=== PATIENT | female | born 1970 | race Caucasian/White ===

== ENCOUNTER 2025-03-29 07:23 | Outpatient (REF) | payer BC, SELFPAY ==
--- NOTE | ~2025-03-29 | XR_ITS ---
EXAMINATION: XR KNEE 3 VIEWS LEFT HISTORY: M25.562 - Pain in left knee COMPARISON: There are no prior studies available for comparison. FINDINGS: Standing AP views of both knees and additional lateral and sunrise patellar views of the left knee are submitted. Osseous mineralization is normal. There is no fracture or dislocation. The joint spaces are preserved. The soft tissues are unremarkable. There is no joint effusion. XR/XR knee LT 3V IMPRESSION: Unremarkable examination of the left knee. Electronically signed by: Cliff Durham MD 03/29/2025 09:41 AM EDT
== END 2025-03-29 07:24 | disposition home or self-care (01) ==
LOC: HO.HOSX 07:23
PROVIDERS: Visit Provider Orthopaedic Surgery
DX: M25.562 Pain in left knee (principal)
CPT/HCPCS: 73562

== ENCOUNTER 2025-03-29 08:49 | Outpatient (AMB) | payer BC, SELFPAY ==
--- NOTE | 2025-03-29 09:00 | A.OFFVIS_ITS ---
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 Patient reports that she fell on her left knee while skiing. Patient states that the pain is located around the whole knee cap and behind the knee cap. Patient reports that she is having stabbing/Dullache with any movement. Patient reports that no numbness or tingling. Patient states she has been to physical therapy for eight weeks, no meds to help with the pain. Allergies cat dander Allergy (Verified 03/29/25 09:05) Itching dog dander Allergy (Verified 03/29/25 09:05) Itching phenylpropanolamine Allergy (Verified 03/29/25 09:05) Tongue Swelling HPI HPI BUSINESS PROJECT MANAGER-Lt Knee pain: Details: Tabitha is a 55 year old female who presents today as a New Patient with complaints of Left Knee Pain. Patient reports that she fell on her left knee while skiing. Patient states that the pain is located around the whole knee cap and behind the knee cap. Patient reports that she is having stabbing/Dullache with any movement. Patient reports that no numbness or tingling. Patient states she has been to physical therapy for eight weeks, no meds to help with the pain. 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 She has a doing physical therapy. She is worried that she will not be able to return to her prior level of activity. She also describes some tenderness over the superficial aspect of the knee. She states she feels the knee is tight skin when she bends. She denies numbness and tingling. [facility] Surgical History (Updated 03/23/25 @ 11:13 by Carolyn Deluna CMA) H/O excision of ganglion cyst History of tonsillectomy Social History (Updated 03/29/25 @ 09:07 by Adelaida Barber, CCT-A) Patient Tobacco Use Status: Never used Tobacco Current occupational status: employed Current occupation: Teacher Physical Exam Vital Signs: BMI result Body Mass Index 26.5 Extrem Other: Pleasant young woman in no acute distress. Left knee with 5-115 degrees of motion. Decreased patellar mobility with mild effusion. Tight iliotibial band. Stable to Delaney's testing although quite apprehensive. Negative Sung's. No joint line tenderness. Results Reviewed Results Reviewed: I personally reviewed relevant radiographs. Small femoral osteophyte laterally otherwise unremarkable I personally reviewed the MR images. Proximal high-grade tear left ACL with lateral tibial plateau osseous contusion with a medial meniscus posterior 3rd meniscal capsular injury and mild chondromalacia of the patella Assessment & Plan Assessment & Plan (1) Anterior cruciate ligament tear: Code(s): S83.519A - Sprain of anterior cruciate ligament of unspecified knee, initial encounter Category: Medical Plan: This is a 55-year-old woman with a partial ACL tear. She has stiffness and is working through that with therapy. There is no acute intervention warranted. I recommend therapy followed by increased icing and rest when not active. I would like to see her back in 4-6 weeks. At this time there is no evidence of knee instability Orders: Orders XR knee LT 3V Today M25.562 - Pain in left knee Coding Level of Care Code New Pt Level 3 (80941) Diagnoses Anterior cruciate ligament tear S83.519A
[2025-03-29 09:02] VITALS: BMI 26.5
== END 2025-03-29 09:42 | disposition home or self-care (01) ==
LOC: HO.HOS 08:49
PROVIDERS: PCP Internal Medicine; Visit Provider Orthopaedic Surgery
DX: S83.512A Sprain of anterior cruciate ligament of left knee, initial encounter (principal)
CPT/HCPCS: 99203

== ENCOUNTER → 2025-03-29 08:50 | Outpatient (BNV) | payer BC, SELFPAY | PROVIDERS: Visit Provider Radiology Diagnostic Radiology | DX: M25.562 Pain in left knee (principal) | CPT/HCPCS: 73562 ==

== ENCOUNTER 2025-05-10 08:32 | Outpatient (AMB) | payer BC, SELFPAY ==
[2025-05-10 08:40] VITALS: BMI 26.5
--- NOTE | 2025-05-10 08:40 | MHC.OFFVIS ---
Vital Signs 05/10/25 08:40 Height 5 ft 2 in Weight 145 lb BMI 26.5 Intake Visit Reasons: OV-Lt Knee pain f/u Intake Note: Tabitha is a 55 year old female who presents today for a follow up of her Left Partial ACL Tear. She injured the knee while skiing. At her last visit she was instructed to work with PT for her stiffness. Patient reports she is doing well, however she has a dull constant pain around her knee cap. She is having muscle spasms in her knee as well. Allergies cat dander Allergy (Verified 05/10/25 08:49) Itching dog dander Allergy (Verified 05/10/25 08:49) Itching phenylpropanolamine Allergy (Verified 05/10/25 08:49) Tongue Swelling HPI HPI OV-Lt Knee pain f/u: Details: Tabitha is a 55 year old female who presents today for a follow up of her Left Partial ACL Tear. She injured the knee while skiing. At her last visit she was instructed to work with PT for her stiffness. Patient reports she is doing well, however she has a dull constant pain around her knee cap. She is having muscle spasms in her knee as well. [facility] Surgical History (Updated 03/23/25 @ 11:13 by Carolyn Deluna [facility]) H/O excision of ganglion cyst History of tonsillectomy Social History (Updated 03/29/25 @ 09:07 by Adelaida Barber) Patient Tobacco Use Status: Never used Tobacco Current occupational status: employed Current occupation: Teacher Physical Exam Vital Signs: BMI result Body Mass Index 26.5 Extrem Other: Full range of motion with no effusion. Stable to varus and valgus stress. 1+ Delaney with stable endpoint. No pivot shift. Assessment & Plan Assessment & Plan (1) Anterior cruciate ligament tear: Code(s): S83.519A - Sprain of anterior cruciate ligament of unspecified knee, initial encounter Category: Medical Plan: This is a active and healthy 55-year-old woman. She enjoys Pilates, walking and recreational skiing. She had a high-grade partial tear of her ACL and was stiff at last visit. She has been doing physical therapy and has improved although she still has discomfort with activities and finds deep squatting difficult. She has no clinical complaints or clinical evidence of meaningful instability and her motion has improved. I had a long discussion regarding surgery and nonoperative management. I continue to recommend nonoperative management. I think she should continue PT and avoid dynamic rotation exercises but focus on biking and plyometrics. She will see me back in 2-3 months. Orders: Orders PT Evaluation and Treatment Today S83.519A - Sprain of anterior cruciate ligament of unspecified knee, initial encounter Coding Level of Care Code Est Pt Level 4 (33164) Diagnoses Anterior cruciate ligament tear S83.519A
== END 2025-05-10 09:58 | disposition home or self-care (01) ==
LOC: HO.HOS 08:32
PROVIDERS: PCP Internal Medicine; Visit Provider Orthopaedic Surgery
DX: S83.519A Sprain of anterior cruciate ligament of unspecified knee, initial encounter (principal)
CPT/HCPCS: 99214

== ENCOUNTER 2025-06-24 14:34 | Outpatient (AMB) | payer BC, SELFPAY ==
--- NOTE | 2025-06-24 14:40 | MHC.OFFVIS ---
Vital Signs 06/24/25 14:50 Height 5 ft 2 in Weight 145 lb BMI 26.5 Intake Visit Reasons: OV - Left Knee Partial ACL Tear Intake Note: Tabitha is a 55 year old female who presents today for a follow up of her Left knee - Partial ACL Tear. Injury while skiing. At her last visit we discussed operative and non operative management, we decided to continue conservative management - Continue Physical Therapy and about dynamic rotation exercises. Patient rpeorts that she is doing well, she is still hesitant to move forward with surgery, Allergies cat dander Allergy (Verified 05/10/25 08:49) Itching dog dander Allergy (Verified 05/10/25 08:49) Itching phenylpropanolamine Allergy (Verified 05/10/25 08:49) Tongue Swelling HPI HPI OV - Left Knee Partial ACL Tear: Details: 55-year-old with a high-grade partial tear of her left ACL. She comes in today doing pretty well. She has near full motion and does not feel any instability. Her quad has continued atrophy however she has some discomfort with daily activity but denies giving way. She is active and likes to ski but is not high intensity ski year. [facility] Surgical History (Updated 03/23/25 @ 11:13 by Caorlyn Deluna [facility]) H/O excision of ganglion cyst History of tonsillectomy Social History (Updated 03/29/25 @ 09:07 by Adelaida Barber) Patient Tobacco Use Status: Never used Tobacco Current occupational status: employed Current occupation: Teacher Physical Exam Vital Signs: BMI result Body Mass Index 26.5 Extrem Other: On physical exam she has no effusion with to 130 degrees of motion. Stable to varus and valgus stress. Negative Delaney's/anterior drawer/pivot shift. Assessment & Plan Assessment & Plan (1) Partial tear of anterior cruciate ligament of knee: Code(s): S83.519A - Sprain of anterior cruciate ligament of unspecified knee, initial encounter Category: Medical Plan: This is a 55-year-old woman with no clinical evidence of instability and a incomplete ACL tear on MRI. Her motion has improved and she is doing Pilates but still has some stiffness and discomfort. I had a long discussion regarding treatment options. It is a little aggressive to discuss surgery when she does not have any evidence of instability and there is a suggestion of only a partial tear on MRI. I did discuss that she may worsen in the future have giving way symptoms that would lead us down a surgical past but at this point I do not recommend surgery. I would like to see her back in 3 months' time and we will go from there. In the meantime I discussed workout activities that would benefit her these include closed-chain activities with strengthening of the lower extremity and avoidance of cutting activities. She understands the plan and is amenable to it. Coding Level of Care Code Est Pt Level 4 (57413) Diagnoses Partial tear of anterior cruciate ligament of knee S83.519A
[2025-06-24 14:50] VITALS: BMI 26.5
--- OUTSIDE RECORDS SUMMARY | 2025-06-24 15:50 | XMS_ITS | Encounter Summary ---
Author Organization [facility] Address [address] [facility] [address] [place] [phone] Phone Care Team Providers Care Wire Drawing Machine Tender Name Role Phone Neo Shepard MD Primary Care Provider Neo Shepard MD Primary Care Provider [phone] Encounter Details Date Type Department Care Team (Late Contact Info) Description 11/12/2023 Ancillary Orders [facility],Outside Imaging [address] [place] [address] System, Provider Not In, PhD [address] [address] Social History Tobacco Use Types Packs/Day Years Used Date Smoking Tobacco: Former Cigarettes Q uit: 1998 Smokeless Tobacco: Never Alcohol Use Standard Drinks/Week Comments Yes 7 (1 standard drink = 0.6 oz pur e alcohol) Education Answer Date Recorded Are you interested in more education? Not on rolando e 04/12/2023 Are you concerned about learning? Not on file 04/12/2023 No 04/12/2023 No 04/12/2023 Digital Access Answer Date Recorded No 04/12/2023 No 04/12/2023 Reliable internet access at home? Not on file 04/12/2023 Device with a working camera? Not on file Comments Unknown Sex and Gender Information Value Date Recorded Sex Assigned at Not on file Legal Sex Female 11:26 AM EDT Gender Identity Not on file Sexual Orientation Not on file documented as of this encounter Plan of Treatment Upcoming Encounters Date Type Department Care Team (Late Contact Info) Description 07/02/2025 8:30 AM EDT Telemedicine [facility] Neuromuscular Service [address] [place] [address] Regan Carty MD, PhD [address] [place] [phone] [email or web address] 11/11/2025 3:40 PM EST Office Visit [facility] [address] [place] [address] Michelle Chairez MD [address] [place] [address] [address] [place] [address] [email or web address] documented as of this encounter Results * DXA Outside (No Interpretation) (06/12/2019 12:00 AM EDT) Narrative Cheri Chávez - 11/12/2023 6:48 AM EST This study is for PACS storage only and not for interpretation. Procedure Note Cheri Chávez - 11/12/2023 This study is for PACS storage only and not for interpretation. us Provider Not In System PhD IMG OUTSIDE IMAGING W /OUT INTERPRETATION Final Result documented in this encounter Visit Diagnoses Not on filedocumented in this encounter Care Teams Wire Drawing Machine Tender Relationship Specialty Start Date End Date Neo Shepard MD [address] [place] [phone] [email or web address] PCP - General 04/12/23 11/04/24 Neo Shepard MD [address] [place] [phone] [email or web address] PCP - General Internal Medicine 11/05/24 documented as of this encounter Additional Source Comments The information contained in this document represents components of the legal health record. It is not the complete legal health record.[facility]
--- OUTSIDE RECORDS SUMMARY | 2025-06-24 15:50 | XMS_ITS | Clinical Summary ---
Author Organization [facility] Address [address] [address] Phone Care Team Providers Care Director Of Capital Giving Name Role Phone Neo Shepard MD Primary Care Provider [phone] Allergies Active Allergy Reactions Criticality Noted Date Comments Ascorbic Acid Swelling 10/31/2023 Phenylpropanolamine Hydrochloride Medications atorvastatin (LIPITOR) 40 MG tablet Take 40 mg by mouth once. 10/26/19 24 Active fluticasone propionate 100 mcg/actuation DsDv Inhale 1 puff into the lungs daily. 10/17/20 23 Active spironolactone (ALDACTONE) 100 MG tablet Take 50 mg by mouth daily. 08/29/20 23 Active famotidine (PEPCID ORAL) Take 20 mg by mouth 2 (two) times a day. Active docosahexaenoic acid/epa (FISH OIL ORAL) Take by mouth. Activ e calcium carbonate (CALCIUM 600 ORAL) Take by mouth daily. Active biotin, bulk, 100 % Powd by Miscellaneous route. Active FA/mv,Ca,iron,min /lycopene/lut (MULTIVITAL ORAL) Take by mouth. Active Medication-Free TextIndications:a llertec Indications: allertec Active minoxidiL (LONITEN) 2.5 MG tablet Take 1.25 mg by mouth daily. Active bromfenac (BROMDAY) 0.09 % ophthalmic solution Place 1 drop into each eye daily. 10/01/20 24 Active alendronate (FOSAMAX) 70 MG tabletIndications :Osteopenia of multiple sites Take 1 tablet (70 mg total) by mouth once a week. 12 tablet 3 11/05/19 25 Active albuterol-budeson kylie (AIRSUPRA) 90-80 mcg/actuation inhaler INHALE TWO PUFFS BY MOUTH EVERY 4 TO 6 HOURS NEEDED FOR SHORTNESS OF BREATH OR WHEEZING Active LEVOXYL 100 mcg tabletIndications :Postablative hypothyroidism TAKE ONE TABLET BY MOUTH EVERY DAY 90 tablet 2 02/23/20 25 Active azaTHIOprine (IMURAN) 50 mg tabletIndications :Myasthenia gravis without exacerbation Take 2.5 tablets (125 mg total) by mouth daily. 225 tablet 3 05/14/20 25 026 Active predniSONE (DELTASONE) 5 MG tablet Take 1 tablet (5 mg total) by mouth daily. along with 3 mg for total of 8 mg daily 90 tablet 3 06/15/20 25 026 Active predniSONE (DELTASONE) 1 MG tablet Take 3 tablets (3 mg total) by mouth daily with breakfast. Along with 5 mg tablet for total of 8 mg daily 270 tablet 3 06/15/20 25 026 Active predniSONE (DELTASONE) 5 MG tablet 10 mg daily. daily 10/11/20 23 025 Discontin ued(Reord er) Active Problems Problem Noted Date Diagnosed Date Asthma H/O gastroesophageal reflux (GERD) Postablative hypothyroidism Assessment & Plan (11/05/2024 4:46 PM EST): Clinically & biochemically euthyroid. Reports good consistency taking rx appropriately. Will repeat labs yearly, sooner prn symptoms of thyroid dysfunction or > 10-15# weight change, or as otherwise clinically indicated. Assessment & Plan (10/31/2023 4:08 PM EST): Clinically & biochemically euthyroid. Reports good consistency taking rx appropriately. Will repeat labs yearly, sooner prn symptoms of thyroid dysfunction or > 10-15# weight change, or as otherwise clinically indicated. Myasthenia gravis Osteopenia of multiple sites Assessment & Plan (11/05/2024 4:54 PM EST): Clinically stable, no falls or fractures. Tolerating alendronate w/o issue. Has been on since 2020 d/t chronic high-dose glucocorticoid rx. Bone density last year (02/2024, [facility]). They are going to try to taper the steroid gradually. Seeing dentist regularly. Getting a good amount of calcium via diet/supplement & keeping active. Assessment & Plan (10/31/2023 4:09 PM EST): Clinically stable, no falls or fractures. Tolerating alendronate w/o issue. Seeing dentist regularly. Getting a good amount of calcium via diet/supplement. Vitamin D higher than needed, advised to cut back amount in calcium supplement or MVI. Will obtain previous bone density & records & order bone density to be done when due. Blood creatinine increased compared with prior m easurement Assessment & Plan (11/05/2024 4:55 PM EST): She reports was dehydrated @ time of cataract surgery. Advised to hydrate well & can probably be rechecked @ next visit w/ PCP. Encounters Date Type Department Care Team Description 05/14/2025 Refill [facility] [address] [facility] [place] [address] Regan Carty MD, PhD from Last 3 Months Family History Medical History Relation Comments COPD Father Cancer Father Heart attack Father Asthma Mother COPD Mother Hyperlipidemia Mother Rheumatoid arthritis Mother Chronic interstitial cystitis Sister 1 Substance use disorder Sister 1 Asthma Sister 2 Breast cancer Sister 2 Retinitis pigmentosa Sister 2 Relation Status Comments Father Mother Alive Sister 1 Sister 2 Alive Social History Tobacco Use Types Packs/Day Years Used Date Smoking Tobacco: Former Cigarettes Q uit: 1998 Smokeless Tobacco: Never Tobacco Cessation:Counseling Given: Not Answered Alcohol Use Standard Drinks/Week Comments Yes 7 [...] on file Sexual Orientation Not on file Last Filed Vital Signs Vital Sign Reading Time Taken Comments Blood Pressure 113/74 12/21/2024 1:24 PM EST Pulse 78 12/21/2024 1:21 PM EST Temperature - - Respiratory Rate - - Oxygen Saturation 96% 12/21/2024 1:21 PM EST Inhaled Oxygen Concentration - - Weight 66.7 kg (147 lb) 12/21/2024 1:21 PM EST Height 159.3 cm (5' 2.72 ) 11/05/2024 3:35 PM ES T Body Mass Index 26.28 11/05/2024 3:35 PM EST Plan of Treatment Upcoming Encounters Date Type Department Care Team (Late st Contact Info) Description 07/02/2025 8:30 AM EDT Telemedicine [facility] [address] [facility]th [place] [address] Regan Carty MD, PhD [address] [address] [email or web address] 11/11/2025 3:40 PM EST Office Visit [facility] [address] [place] [phone] Michelle Chairez MD [address] [place] [phone] [email or web address] Health Maintenance Due Date Last Done Comments Adult Td,Tdap Booster 1968 LIPID PANEL 1968 POTASSIUM LEVEL 1968 COVID-19 VACCINE (#1) 01/18/1973 DEPRESSION SCREENING 1980 HEPATITIS C SCREENING 01/18/1986 HIV ONE-TIME SCREENING (18-65 YEARS) 01/18/1986 PNEUMOCOCCAL VACCINES (50+ years) (1 of 2 - PCV) 01/18/1987 ZOSTER VACCINES (1 of 2) 01/18/1987 PAP SMEAR 01/18/1989 SCREENING FOR DIABETES 01/18/2003 MAMMOGRAM 2008 COLOGUARD 01/18/2013 COLONOSCOPY 01/18/2013 COLORECTAL CANCER SCREENING 01/18/2013 FIT TEST 01/18/2013 FOBT 01/18/2013 SIGMOIDOSCOPY 01/18/2013 VIRTUAL COLONOSCOPY 01/18/2013 INFLUENZA VACCINE (#1) 2025 CREATININE LEVEL 11/05/2025 11/05/2024, 12/2023, 10/30/2023 TSH LEVEL 11/05/2025 11/05/2024, 06/2 , 02/21/2024, Additional history exists SMOKING Hx and SMOKELESS TOBACCO SCREENING 12/21/2025 12/21/2024 ALKALINE PHOSPHATASE LEVEL 03/01/202603/01, 12/21/2024, 10/23/2024 HEPATITIS A VACCINES Aged Out No long er eligible based on patient's age to complete this topic HIB VACCINES Aged Out No longer eligi ble based on patient's age to complete this topic MENINGOCOCCAL VACCINES (ACWY) Aged Out No longer eligible based on patient's age to complete this topic MENINGOCOCCAL VACCINES (B) Aged Out N o longer eligible based on patient's age to complete this topic Medical Devices Not on file Procedures Procedure Name Priority Date/Time Associated Diagnosis Comments EXTERNALLY RESULTED CHEMISTRY Routine 03/01/2025 TSH WITH REFLEX Routine 11/05/2024 3:30 PM EST Postablative hypothyroidism COMPREHENSIVE METABOLIC PANEL Routine 11/05/2024 3:30 PM EST Osteopenia of multiple sites from Last 3 Months or Most Recently Relevant to Health Maintenance Results * (ABNORMAL) EXTERNALLY RESULTED CHEMISTRY (03/01/2025) Sodium - External Potassium - External Chloride - External CO2 - External BUN - External Creatinine, serum - External BUN/Creatinine - External eGFR - External Glucose - External Calcium - External Phosphorus - External Magnesium - External Albumin - External 4.3 3.8 - 4.9 g/dL Comment:Done At [facility] Bilirubin, total - External 0.6 0.0 - 1.2 mg/dL Comment:Done At [facility] Bilirubin, direct - External Bilirubin (conjugated) - External Bilirubin, indirect - External Protein - External 6.4 6.0 - 8.5 g/dL Comment:Done At [facility] Alkaline Phosphatase - External 32(A) 44 - 121 IU/L Comment:Done At [facility] AST - External 29 0 - 40 IU/L Comment:Done At [facility] ALT - External 32 0 - 32 IU/L Comment:Done At [facility] Amylase - External Lipase (u/L) - External Cholesterol, total - External LDL - External Triglycerides - External HDL - External TIBC - External Iron - External Ferritin - External Folate - External Vitamin B12 - External CK - External Cotinine - External C-peptide (ng/mL) - External C-peptide (pmol/L) - External HCG, qualitative - External HCG, total - External NT-proBNP - External PTH - External TSH - External T3 - External Total T4 - External Free T4 - External Vitamin D 25(OH) - External AFP (Tumor Marker) - External Uric Acid - External PSA - External GGT - External Lactate, dehydrogenase - External Ammonia - External Vitamin A - External Alk phos: Intestinal Isoenzymes - External Alk phos: Bone Isoenzymes - External Alk phos: Liver Isoenzymes - External Alk phos: Placental Isoenzymes - External Alk phos: Macrohepatic Isoenzymes - External Cystatin C - External 03/01/2025 Historical Provider LAB BLOOD ORDERABLES Urvashi l Result * TSH with reflex (11/05/2024 3:30 PM EST) Blood Michelle Chairez MD LAB BLOOD ORDERABLES F inal Result Performing Organization Address [facility]/ZIP Co de Phone Number [address] [phone] * Comprehensive metabolic panel (11/05/2024 3:30 PM EST) Blood Michelle Chairez MD LAB BLOOD ORDERABLES F inal Result Performing Organization Address City/[facility]/ZIP Co de Phone Number [address] [phone] from Last 3 Months or Most Recently Relevant to Health Maintenance Insurance Care Teams Director Of Capital Giving Relationship Specialty Start Date End Date Neo Shepard MD [address] [place] [address] [email or web address] PCP - General Internal Medicine 11/05/24 Additional Source Comments The information contained in this document represents components of the legal health record. It is not the complete legal health record.[facility]
--- OUTSIDE RECORDS SUMMARY | 2025-06-24 15:50 | XMS_ITS | Encounter Summary ---
Author Organization [facility] Address [address] [facility] [address] [place] [address] Phone Care Team Providers Care Dry Cell And Battery Assembler Name Role Phone Neo Shepard MD Primary Care Provider [phone] Neo Shepard MD Primary Care Provider [phone] Encounter Details Date Type Department Care Team (Late Contact Info) Description 05/11/2024 Ancillary Orders [facility],Outside Imaging [address] [place] [address] System, Provider Not In, PhD [address] [address] Social History Tobacco Use Types Packs/Day Years [...] Info) Description 07/02/2025 8:30 AM EDT Telemedicine [facility] [place] Neuromuscular Service [address] [place] [address] Regan Carty MD, PhD [address] [place] [email or web address] 11/11/2025 3:40 PM EST Office Visit [facility] [address] [place] [address] Michelle Chairez MD [address] [facility] [address] [place] [address] [email or web address] documented as of this encounter Results * DXA Outside (No Interpretation) (06/16/2021 12:00 AM EDT) Narrative SYSTEMGENERATED, DOCUMENTATION - 05/11/2024 7:21 AM EDT This study is for PACS storage only and not for interpretation. us Provider Not In System PhD IMG OUTSIDE IMAGING W /OUT INTERPRETATION Final Result documented in this encounter Visit Diagnoses Not on filedocumented in this encounter Care Teams Dry Cell And Battery Assembler Relationship Specialty Start Date End Date Neo Shepard MD [address] [phone] [email or web address] PCP - General 04/12/23 11/04/24 Neo Shepard MD [address] [place] [phone] [email or web address] PCP - General Internal Medicine 11/05/24 documented as of this encounter Additional Source Comments The information contained in this document represents components of the legal health record. It is not the complete legal health record.[facility]
--- OUTSIDE RECORDS SUMMARY | 2025-06-24 15:50 | XMS_ITS | Encounter Summary ---
Author Organization [facility] Address [address] [facility] [address] [place] [address] Phone Care Team Providers Care Mmd Unit Teacher Name Role Phone Neo Shepard MD Primary Care Provider [phone] Neo Shepard MD Primary Care Provider [phone] Encounter Details Date Type Department Care Team (Late Contact Info) Description 11/12/2023 Ancillary Orders [facility],Outside Imaging [address] [place] [address] System, Provider Not In, PhD [address] [address] Social History Tobacco Use Types Packs/Day Years [...] Info) Description 07/02/2025 8:30 AM EDT Telemedicine [facility] [place] Neuromuscular Service [address] [place] [address] Regan Carty MD, PhD [address] [place] [phone] [email or web address] 11/11/2025 3:40 PM EST Office Visit [facility] [address] [place] [address] Michelle Chairez MD [address] [place] [address] [address] [place] [address] [email or web address] documented as of this encounter Results * DXA Outside (No Interpretation) (06/16/2021 12:00 AM EDT) Narrative Kyler Cheri - 11/12/2023 6:38 AM EST This study is for PACS storage only and not for interpretation. Procedure Note Kyler Cheri - 11/12/2023 This study is for PACS storage only and not for interpretation. us Provider Not In System PhD IMG OUTSIDE IMAGING W /OUT INTERPRETATION Final Result documented in this encounter Visit Diagnoses Not on filedocumented in this encounter Care Teams Mmd Unit Teacher Relationship Specialty [place] [address] [place] [phone] [email or web address] PCP - General 04/12/23 11/04/24 Neo Shepard MD [address] [place] [phone] [email or web address] PCP - General Internal Medicine 11/05/24 documented as of this encounter Additional Source Comments The information contained in this document represents components of the legal health record. It is not the complete legal health record.[facility]
--- OUTSIDE RECORDS SUMMARY | 2025-06-24 15:50 | XMS_ITS ---
Author Name [facility] Organization Unknown Encounters Encounter Type Encounter Reason Primary Diagnosis Location Date Ambulatory [facility] [place] 01/18/2025
--- OUTSIDE RECORDS SUMMARY | 2025-06-24 15:50 | XMS_ITS | Encounter Summary ---
Author Organization [facility] Address [address] [facility] [address] [place] [address] Phone Care Team Providers Care Digital Media Designer Name Role Phone Neo Shepard MD Primary Care Provider [phone] Neo Shepard MD Primary Care Provider [phone] Encounter Details Date Type Department Care Team (Late Contact Info) Description 05/28/2024 Ancillary Orders [facility], [address] [address] System, Provider Not In, PhD Partners [address] [address] Social History Tobacco Use Types Packs/Day Years [...] Info) Description 07/02/2025 8:30 AM EDT Telemedicine [facility] [place] Neuromuscular Service [address] [place] [address] Regan Carty MD, PhD [address] [place] [phone] [email or web address] 11/11/2025 3:40 PM EST Office Visit [facility] [address] [place] [address] Michelle Chairez MD [address] [place] [address] [address] [place] [address] [email or web address] documented as of this encounter Results * DXA Outside (No Interpretation) (03/06/2024 12:00 AM EDT) Narrative Record, 05/28/2024 11:41 AM EDT This study is for PACS storage only and not for interpretation. Procedure Note Record, 05/28/2024 This study is for PACS storage only and not for interpretation. us Provider Not In System PhD IMG OUTSIDE IMAGING W /OUT INTERPRETATION Final Result documented in this encounter Visit Diagnoses Not on filedocumented in this encounter Care Teams Digital Media Designer Relationship Specialty Start Date End Date Neo Shepard MD [address] [phone] [email or web address] PCP - General 04/12/23 11/04/24 Neo Shepard MD [address] [phone] [email or web address] PCP - General Internal Medicine 11/05/24 documented as of this encounter Additional Source Comments The information contained in this document represents components of the legal health record. It is not the complete legal health record.[facility]
== END 2025-06-24 16:00 | disposition home or self-care (01) ==
LOC: HO.HOS 14:34
PROVIDERS: PCP Internal Medicine; Visit Provider Orthopaedic Surgery
DX: S83.512A Sprain of anterior cruciate ligament of left knee, initial encounter (principal)
CPT/HCPCS: 99213